=== PATIENT | male | born 1980 | race Caucasian/White ===

== ENCOUNTER 2017-01-16 12:34 | Outpatient (CLI) ==
[2017-01-16 13:03] LABS: BASOPHILS # (AUTO) 0.1 K/uL (0-0.2); BASOPHILS % (AUTO) 0.5 % (0.0-3.0); EOSINOPHILS # (AUTO) 0.1 K/ul (0.0-0.7); EOSINOPHILS % (AUTO) 1.3 % (0.0-7.0); HEMATOCRIT 40.7 % (42.0-52.0); HEMOGLOBIN 14.2 g/dl (14.0-18.0); IMMATURE GRANULOCYTE % (AUTO) 0.5 % (0.0-5.0); LYMPHOCYTES # (AUTO) 2.9 K/uL (0.60-3.4); LYMPHOCYTES % (AUTO) 29.7 (10.0-50.0); MEAN CORPUSCULAR HEMOGLOBIN 29.2 pg (27.0-31.0); MEAN CORPUSCULAR HGB CONC 34.9 (31.8-35.4); MEAN CORPUSCULAR VOLUME 83.7 fl (80.0-94.0); MONOCYTES # (AUTO) 0.7 K/uL (0.4-2.0); MONOCYTES % (AUTO) 7.4 (0-10); NEUTROPHILS # (AUTO) 5.9 K/ul (2.0-6.9); NEUTROPHILS % (AUTO) 60.6; PLATELET COUNT 299 10^3/uL (140-440); RED BLOOD COUNT 4.86 10^6/ul (4.70-6.10); WHITE BLOOD COUNT 9.75 K/ul (4.2-10.2)
[2017-01-16 13:37] LABS: ALBUMIN 4.2 g/dL (3.4-5.0); ALBUMIN/GLOBULIN RATIO 1.31; ANION GAP 12.8; BILIRUBIN,TOTAL 1.63 mg/dL (0.00-1.20); BUN/CREATININE RATIO 13.79; CALCIUM 9.8 mg/dL (8.2-10.2); CHOL/HDL RATIO 4.1 (4.5-6.4); CREATININE 1.16 mg/dL (0.60-1.10); POTASSIUM 3.8 mmol/L (3.5-5.1); TOTAL PROTEIN 7.4 g/dL (6.4-8.2)
== END 2017-01-16 12:35 | disposition home or self-care (01) ==
LOC: LAB 12:34
PROVIDERS: ATTEND Nurse Practitioner Family
DX: Z00.00 Encounter for general adult medical examination without abnormal findings (principal); F41.8 Other specified anxiety disorders
CPT/HCPCS: 36415; 80053; 80061; 84443; 85025

== ENCOUNTER 2017-01-20 06:12 | Outpatient (CLI) | payer OTHER ==
--- NOTE | 2017-01-23 08:00 | STRESSECHO ---
Date of Test: 01/20/17 Reason for Exam: RHEUMATIC TRICUSPID VALVE INSUFFICIENCY, TACHYCARDIA, HTN Ordering Physician: HUMAIRA Current Medications: NONE Resting EKG: Target Heart Rate: 157/185 STAGE MPH/GRADE HEART RATE BPM BLOOD PRESSURE mmhg RHYTHM S-T SEGMENT +/- UP DOWN SYMPTOMS,COMMENTS At Rest 105 128/92 SR X NONE 1 1.7/10% 140 180/100 SR X NONE 2 2.5/12% 150 160/92 SR X NONE 3 3.4/14% 4 4.2/16% 5 5.0/18% Immediately after 160 SR X FATIGUE Durations of Exercise: 8:00 Maximum Heart Rate Reached: 160 Reason for Termination: FATIGUE 3 MIN POST EXERCISE: HR 124 BPM, BP 142/90 MMHG 6 MIN POST EXERCISE: HR 115 INTERPRETATION: 98% OXYGEN SATURATION WITH EXERCISE ON ROOM AIR METS 10.1 1. NO EVIDENCE OF ISCHEMIA BY ST-T WAVE 2. NO CHEST PAIN OR CHEST DISCOMFORT 3. BLOOD PRESSURE RESPONSE: HYPERTENSION AT REST AND WITH EXERCISE 4. NO ARRHYTHMIAS NORMAL LEFT VENTRICLE CONTRACTILITY--RESTING AND POST EXERCISE MTDD
--- NOTE | 2017-01-23 08:04 | ECHOSTRESS ---
Date of Exam: 01/20/17 [facility] Reason for Echo: RHEUMATIC TRICUSPID VALVE INSUFFICIENCY, TACHYCARDIA, STRESS TEST--NO ISCHEMIA M-Mode Normal Adult Results LV Dimensions Normal Adult Results AoV Opening excursions >1.6 LVEDD-base- 3.5-5.8 Ao root dimensions 2.0-3.7 LVESD-base- 3.1-4.6 L. Atrium dimensions 1.9-3.8 Post. Wall thickness 0.8-1.1 IV septum (thickness) 0.7-1.2 Post. Wall excursion 0.72-1.3 Septal motion Systolic motion R. Ventricular cavity 1.5-2.0 LVEF 60% Paradoxical septal wall motion 2-D: NORMAL LEFT VENTRICULAR CONTRACTILITY--RESTING AND POST EXERCISE M-MODE: MV: AV: TV: PV: CHAMBER SIZE: WALL MOTION: NORMAL LEFT VENTRICULAR CONTRACTILITY--RESTING AND POST EXERCISE PERICARDIUM: INTERPRETATION: 1. NORMAL LEFT VENTRICULAR CONTRACTILITY--RESTING AND POST EXERCISE MTDD
== END 2017-01-20 06:13 | disposition home or self-care (01) ==
LOC: CAR 06:12
PROVIDERS: ATTEND Nurse Practitioner Family
DX: I07.1 Rheumatic tricuspid insufficiency (principal); R00.0 Tachycardia, unspecified
CPT/HCPCS: 93005; 93010

== ENCOUNTER 2017-02-23 09:52 | Emergency (ER) ==
[2017-02-23 09:58] VITALS: BP 129/79; TEMP 98.2; BMI 27.1
[2017-02-23 10:28] LABS: BASOPHILS # (AUTO) 0.1 K/uL (0-0.2); BASOPHILS % (AUTO) 1.1 % (0.0-3.0); EOSINOPHILS # (AUTO) 0.7 K/ul (0.0-0.7); EOSINOPHILS % (AUTO) 6.8 % (0.0-7.0); HEMATOCRIT 43.3 % (42.0-52.0); HEMOGLOBIN 15.3 g/dl (14.0-18.0); IMMATURE GRANULOCYTE % (AUTO) 0.6 % (0.0-5.0); LYMPHOCYTES # (AUTO) 1.9 K/uL (0.60-3.4); LYMPHOCYTES % (AUTO) 18.3 (10.0-50.0); MEAN CORPUSCULAR HEMOGLOBIN 29.3 pg (27.0-31.0); MEAN CORPUSCULAR HGB CONC 35.3 (31.8-35.4); MONOCYTES # (AUTO) 0.5 K/uL (0.4-2.0); MONOCYTES % (AUTO) 5.3 (0-10); NEUTROPHILS # (AUTO) 6.9 K/ul (2.0-6.9); NEUTROPHILS % (AUTO) 67.9; PLATELET COUNT 236 10^3/uL (140-440); RED BLOOD COUNT 5.22 10^6/ul (4.70-6.10); WHITE BLOOD COUNT 10.16 K/ul (4.2-10.2)
[2017-02-23 10:50] LABS: ALBUMIN 4.1 g/dL (3.4-5.0); ALBUMIN/GLOBULIN RATIO 1.41; ANION GAP 13.2; BILIRUBIN,TOTAL 0.79 mg/dL (0.00-1.20); BUN/CREATININE RATIO 10.52; CALCIUM 9.7 mg/dL (8.2-10.2); CREATININE 1.14 mg/dL (0.60-1.10); POTASSIUM 4.2 mmol/L (3.5-5.1)
--- NOTE | 2017-02-23 11:33 | ED.PDOC ---
General ED Provider: Dr. JIMMIE ARGUETA Chief Complaint: Non-specific Complaint Stated Complaint: weakness Time Seen by Physician: 10:00 (generalized weakness no pain) Mode of Arrival: Walk-In Information Source: Patient Exam Limitations: No limitations Primary Care Provider[facility] Nursing and Triage Documentation Reviewed and Agree: Yes Miscellaneous Complaint Exam - Febrile Illness/Adult Complaint/Exam Symptoms Are: Still present Timing: Intermittent Episodes Lasting: Minutes Initial Severity: Moderate Current Severity: Moderate Aggravating: Reports: None Alleviating: Reports: None Associated Signs and Symptoms: Denies: Headache, Fluid intake, Short of air, Cough, Sore throat, Nausea, Vomiting, Chills, Diaphoresis, Dysuria, Arthralgia, Stiff neck, Myalgia, Rash, Altered mental status Related History: Reports: Similar episode Pseudomonas Risk Factors: Reports: None Serious Bacterial Infection Risk Factors: Reports: None Current Antibiotic Use: No Related Surgical History: None Review of Systems - Review Of Systems Constitutional: Reports: Malaise, Weakness Eyes: Reports: No symptoms Ears, Nose, Mouth, Throat: Reports: No symptoms Respiratory: Reports: No symptoms Cardiac: Reports: No symptoms GI: Reports: No symptoms : Reports: No symptoms Musculoskeletal: Reports: No symptoms Skin: Reports: No symptoms Neurological: Reports: No symptoms Endocrine: Reports: No symptoms Hematologic/Lymphatic: Reports: No symptoms All Other Systems: Reviewed and Negative Past Medical History - Past Medical History Previously Healthy: Yes Endocrine: Reports: None Cardiovascular: Reports: None Respiratory: Reports: None Hematological: Reports: None Gastrointestinal: Reports: None Genitourinary: Reports: None Neuro/Psych: Reports: None Musculoskeletal: Reports: None Cancer: Reports: None - Surgical History General Surgical History: Reports: None - Family History Family History: Reports: None - Social History Smoking Status: Former smoker Hx Substance Use: No Alcohol Screening: None Physical Exam - Physical Exam Appearance: Well-appearing, No pain distress, Well-nourished Eyes: HAFSA, EOMI, Conjunctiva clear ENT: Ears normal, Nose normal, Oropharynx normal Respiratory: Airway patent, Breath sounds clear, Breath sounds equal, Respirations nonlabored Cardiovascular: RRR, Pulses normal, No rub, No murmur GI/: Soft, Nontender, No masses, Bowel sounds normal, No Organomegaly Musculoskeletal: Normal strength, ROM intact, No edema, No calf tenderness Skin: Warm, Dry, Normal color Neurological: Sensation intact, Motor intact, Reflexes intact, Cranial nerves intact, Alert, Oriented Psychiatric: Affect appropriate, Mood appropriate Critical Care Note - Critical Care Note Total Time (mins): 0 Course - Course Hematology/Chemistry: 02/23/17 10:25 02/23/17 10:25 Orders, Labs, Meds: Lab Review 02/23/17 10:25 WBC 10.16 RBC 5.22 Hgb 15.3 Hct 43.3 MCV 83.0 MCH 29.3 MCHC 35.3 RDW Coeff of Bj 12.4 Plt Count 236 Immature Gran % (Auto) 0.6 Neut % (Auto) 67.9 Lymph % (Auto) 18.3 [place] % (Auto) 5.3 Eos % (Auto) 6.8 Baso % (Auto) 1.1 Immature Gran # (Auto) 0.1 Neut # 6.9 Lymph # 1.9 [place] # 0.5 Eos # 0.7 Baso # 0.1 Sodium 140 Potassium 4.2 Chloride 103 Carbon Dioxide 28 Anion Gap 13.2 BUN 12 Creatinine 1.14 H Estimated GFR (MDRD) 73.00 BUN/Creatinine Ratio 10.52 Glucose 115 H Calcium 9.7 Total Bilirubin 0.79 AST 36 ALT 57 Alkaline Phosphatase 73 Total Protein 7.0 Albumin 4.1 Globulin 2.9 Albumin/Globulin Ratio 1.41 Orders Category Date Time Status CBC W/ AUTO DIFF Stat LAB 02/23/17 10:25 Completed COMPREHENSIVE METABOLIC PANEL Stat LAB 02/23/17 10:25 Completed Vital Signs: Temp Pulse Resp BP Pulse Ox 02/23/17 09:53 98.2 F 105 H 16 129/79 97 Departure - Departure Time of Disposition: 11:33 Disposition: HOME SELF-CARE Discharge Problem: Generalized weakness Instructions: Weakness (ED) Condition: Good Pt referred to PMD for follow-up: No Additional Instructions: Please call your Family Physician as soon as possible to schedule a follow-up appointment. Allergies/Adverse Reactions: Allergies No Known Allergies Allergy (Verified 02/23/17 09:58)
== END 2017-02-23 12:01 | disposition home or self-care (01) ==
LOC: ED 09:52
DX: R53.1 Weakness (principal)
CPT/HCPCS: 36415; 80053; 85025; 99283

== ENCOUNTER 2017-08-24 22:36 | Emergency (ER) ==
[2017-08-24 22:37] VITALS: BMI 27.1
[2017-08-24 22:45] VITALS: BP 143/80; TEMP 98.3
--- NOTE | 2017-08-24 23:04 | ED.PDOC ---
General ED Provider: Dr. GLORIA JASSO Chief Complaint: Chest Wall Injury/Pain Stated Complaint: Patient was cutting wood, lifting some heavy wood, started hurting left side chest, now hurts to breath. Time Seen by Physician: 23:02 Mode of Arrival: Walk-In Information Source: Patient Primary Care Provider: GLORIA JASSO-[facility] Nursing and Triage Documentation Reviewed and Agree: Yes Cardiovascular Complaint Exam - Chest Pain Complaint/Exam Onset: Gradual Symptoms Are: Still present Timing: Constant Initial Severity: Mild Current Severity: Mild Location: Reports: Lower sternal Pain Radiates: Reports: Back Character: Reports: Dull, Aching Aggravating: Reports: Movement, Deep breaths Alleviating: Reports: None Associated Signs and Symptoms: Denies: Diaphoresis, Nausea, Vomiting, Fever, Palpitations, Cough, Hemoptysis, Back pain, Abdominal pain, Dizziness, Short of air, Calf pain, Calf swelling Related History: Reports: Similar episode Related Surgical History: Reports: None History of Healthcare-Acquired Pneumonia: Reports: No AMI/ACS Risk Factors: Reports: None TAD Risk Factors: Reports: None Pulmonary Embolism Risk Factors: Reports: None Recent Stress Test: No Recent Echo/LV Function: No JVD Present: No Diminshed Breath Sounds: No Reproducible Chest Wall Pain: Yes Bilateral Pulses Present: Yes Differential Diagnoses: Chest Wall Pain Review of Systems - Review Of Systems Constitutional: Reports: No symptoms Eyes: Reports: No symptoms Ears, Nose, Mouth, Throat: Reports: No symptoms Respiratory: Reports: No symptoms Cardiac: Reports: Chest pain GI: Reports: No symptoms : Reports: No symptoms Musculoskeletal: Reports: No symptoms Skin: Reports: No symptoms Neurological: Reports: No symptoms Endocrine: Reports: No symptoms Hematologic/Lymphatic: Reports: No symptoms All Other Systems: Reviewed and Negative Past Medical History - Past Medical History Previously Healthy: Yes Endocrine: Reports: None Cardiovascular: Reports: None Respiratory: Reports: None Hematological: Reports: None Gastrointestinal: Reports: None Genitourinary: Reports: None Neuro/Psych: Reports: None Musculoskeletal: Reports: None Cancer: Reports: None - Surgical History General Surgical History: Reports: None - Family History Family History: Reports: None - Social History Smoking Status: Never smoker Hx Substance Use: No Alcohol Screening: None - Immunizations Tetanus Shot up to Date: Yes Physical Exam - Physical Exam Appearance: Ill-appearing Pain Distress: Mild Eyes: HAFSA, EOMI, Conjunctiva clear ENT: Ears normal, Nose normal, Oropharynx normal Respiratory: Airway patent, Breath sounds clear, Breath sounds equal, Respirations nonlabored Cardiovascular: RRR, Pulses normal, No rub, No murmur GI/: Soft, Nontender, No masses, Bowel sounds normal, No Organomegaly Musculoskeletal: Normal strength, ROM intact, No edema, No calf tenderness Skin: Warm, Dry, Normal color Neurological: Sensation intact, Motor intact, Reflexes intact, Cranial nerves intact, Alert, Oriented Psychiatric: Affect appropriate, Mood appropriate Interpretation - Radiology Interpretation Radiology Interpretation By: ED Physician Radiology Results: Negative Exam Interpreted: CXR Critical Care Note - Critical Care Note Total Time (mins): 10 Course - Course Orders, Labs, Meds: Orders Category Date Time Status Ketorolac Tromethamine [Toradol] MEDS 08/24/17 23:01 Discontinued 60 mg IM ONCE STA CHEST, 2 VIEWS PA & LAT Stat RADS 08/24/17 23:01 Taken Medications Discontinued Medications Generic Name Dose Route Start Last Admin Trade Name Starq PRN Reason Stop Dose Admin Ketorolac Tromethamine 60 mg 08/24/17 23:01 08/24/17 23:10 Toradol IM 08/24/17 23:02 60 mg ONCE STA Administration Vital Signs: Temp Pulse Resp BP Pulse Ox 08/24/17 22:38 98.3 F 109 H 20 143/80 H 97 KANNAN Risk Score KANNAN Risk Score: Risk Score Odds of by 30D 0 0.1 (0.1-0.2) 1 0.3 (0.2-0.3) 2 0.4 (0.3-0.5) 3 0.7 (0.6-0.9) 4 1.2 (1.0-1.5) 5 2.2 (1.9-2.6) 6 3.0 (2.5-3.6) 7 4.8 (3.8-6.1) Departure - Departure Time of Disposition: 23:36 Disposition: HOME SELF-CARE Discharge Problem: Chest wall pain Instructions: Chest Wall Pain (ED) Condition: Good Pt referred to PMD for follow-up: Yes Additional Instructions: take medication with food If the pain not better in 3-4 days needs f/u at [facility] Prescriptions: Prednisone 10 mg PO BIDWM #14 tablet Tramadol HCl 50 mg PO BID #14 tablet Allergies/Adverse Reactions: Allergies No Known Allergies Allergy (Verified 08/24/17 22:45) Home Medications: Ambulatory Orders Prednisone 10 mg PO BIDWM #14 tablet 08/24/17 Tramadol HCl 50 mg PO BID #14 tablet 08/24/17 Disposition Discussed With: Patient
[2017-08-24] MEDS: TORADOL IM STA (23:10)
--- NOTE | 2017-08-25 07:55 | DI ---
EXAM: Two-view chest HISTORY: Left-sided pain COMPARISON: None. FINDINGS: The cardiomediastinal silhouette is normal. The lungs are clear bilaterally. No osseous abnormalities are identified. IMPRESSION: No evidence of active pulmonary disease.
== END 2017-08-24 23:39 | disposition home or self-care (01) ==
LOC: ED 22:36
DX: R07.89 Other chest pain (principal)
CPT/HCPCS: 96372; 99282

== ENCOUNTER 2018-05-25 01:08 | Emergency (ER) ==
[2018-05-25 01:22] VITALS: BP 136/76; TEMP 98.6; BMI 28.9
[2018-05-25] MEDS ORDERED: TETRACAINE 0.5% UNIT-DOSE OP STA (01:46)
[2018-05-25] MEDS ORDERED: EYE-STREAM OP STA (01:46)
[2018-05-25] MEDS ORDERED: FLUORETS OP STA (01:46)
--- NOTE | 2018-05-25 01:48 | ED.PDOC ---
General ED Provider: Dr. YANELY RAYMUNDO Chief Complaint: Eye Problem Stated Complaint: feels like there is a foreign body in the right eye. Was using a stone setter metal optical frames two days ago but had no sheild Time Seen by Physician: 01:40 Mode of Arrival: Walk-In Information Source: Patient Primary Care Provider: DIDI PRESLEY Nursing and Triage Documentation Reviewed and Agree: Yes Does patient meet sepsis criteria?: No System Inflammatory Response Syndrome: Not Applicable Sepsis Protocol: For patient's 13 years and over: Temp is 96.8 and below OR 101 and greater Pulse >90 BPM Resp >20/minute Acutely Altered Mental Status Are patient's symptoms suggestive of a new infection, such as: -Pneumonia -Skin, Soft Tissue -Endocarditis -UTI -Bone, Joint Infection -Implantable Device -Acute Abdominal Infection -Wound Infection -Meningitis -Blood Stream Catheter Infection -Unknown EENT Complaint Exam - Eye Complaint/Exam Onset/Duration: 2 days Symptoms Are: Still present Timing: Constant Initial Severity: Moderate Location: Right Character: Reports: Foreign body sensation Aggravating: Reports: Blinking Associated Signs and Symptoms: Reports: Photophobia, Purulent drainage Related History: Reports: Foreign body, Environmental Eye Surgical History: Reports: None Penetrating Injury Risk Factors: Grinding Globe Rupture Risk Factors: None Visual Field: Normal Extraocular Movement: Normal Orbit Findings: Normal Globe Findings: Intact Lid Findings: Normal Fluorescein Uptake: No Fundi: Normal Differential Diagnoses: Conjunctivitis, Foreign Body Review of Systems - Review Of Systems Constitutional: Reports: No symptoms Eyes: Reports: Foreign body sensation, Pain Ears, Nose, Mouth, Throat: Reports: No symptoms Respiratory: Reports: No symptoms Cardiac: Reports: No symptoms GI: Reports: No symptoms : Reports: No symptoms Musculoskeletal: Reports: No symptoms Skin: Reports: No symptoms Neurological: Reports: No symptoms Endocrine: Reports: No symptoms Hematologic/Lymphatic: Reports: No symptoms All Other Systems: Reviewed and Negative Past Medical History - Past Medical History Previously Healthy: Yes Endocrine: Reports: None Cardiovascular: Reports: None Respiratory: Reports: None Hematological: Reports: None Gastrointestinal: Reports: None Genitourinary: Reports: None Neuro/Psych: Reports: None Musculoskeletal: Reports: None Cancer: Reports: None - Surgical History General Surgical History: Reports: None - Family History Family History: Reports: None - Social History Smoking Status: Former smoker Hx Substance Use: No Alcohol Screening: None - Immunizations Tetanus Shot up to Date: Yes Physical Exam - Physical Exam Appearance: Well-appearing, Obese Eyes: HASFA, EOMI, Conjunctiva inflammed Neck: Supple Respiratory: Respirations nonlabored Skin: Warm, Dry Neurological: Alert, Oriented Psychiatric: Anxious Critical Care Note - Critical Care Note Total Time (mins): 0 Course - Course Orders, Labs, Meds: Orders Category Date Time Status Balanced Salt Solution [Eye-Stream] MEDS 05/25/18 01:46 Stat 1 bottle OP ONCE STA Fluorescein Sodium [Fluorets] MEDS 05/25/18 01:46 Stat 1 strip OP ONCE STA Tetracaine HCl/Pf [Tetracaine 0.5% Unit-Dose] MEDS 05/25/18 01:46 Stat 2 drop OP ONCE STA Medications Generic Name Dose Route Start Last Admin Trade Name Freq PRN Reason Stop Dose Admin Eye Irrigation Solution 1 bottle 05/25/18 01:46 Eye-Stream OP 05/25/18 01:47 ONCE STA Fluorescein Sodium 1 strip 05/25/18 01:46 Fluorets OP 05/25/18 01:47 ONCE STA Tetracaine HCl 2 drop 05/25/18 01:46 Tetracaine 0.5% Unit-Dose OP 05/25/18 01:47 ONCE STA Vital Signs: Temp Pulse Resp BP Pulse Ox 05/25/18 01:08 98.6 F 83 18 136/76 96 Departure - Departure Time of Disposition: 01:59 Disposition: HOME SELF-CARE Discharge Problem: Sensation of foreign body in eye Instructions: Eye Foreign Body (ED) Condition: Stable Pt referred to PMD for follow-up: Yes IPMP verified?: No Additional Instructions: Follow up with the eye clinic for reevaluation Use antibiotics eye drops every 4 hours x 10 days. Allergies/Adverse Reactions: Allergies Penicillins Adverse Reaction (Verified 05/25/18 01:22) STATES POSSIBLE PENICILLIN ALLERGY. WAS TOLD BY MOTHER HE WAS ALLERGIC. Home Medications: Ambulatory Orders Ranitidine HCl [Zantac] 150 mg PO BEDTIME PRN 05/25/18 Disposition Discussed With: Patient
[2018-05-25] MEDS ORDERED: GENTAK OPTH SOL OP STA (01:59)
[2018-05-25] MEDS ORDERED: FLUORETS OP ONE (02:05)
[2018-05-25] MEDS ORDERED: TETRACAINE 0.5% UNIT-DOSE OP ONE (02:05)
[2018-05-25] MEDS ORDERED: EYE-STREAM OP ONE (02:05)
== END 2018-05-25 02:29 | disposition home or self-care (01) ==
LOC: ED 01:08
DX: H57.11 Ocular pain, right eye (principal)
CPT/HCPCS: 99282

== ENCOUNTER 2018-07-25 16:07 | Emergency (ER) | payer OTHER ==
[2018-07-25 16:11] VITALS: BP 137/83; TEMP 96.9; BMI 29.5
--- NOTE | 2018-07-25 17:06 | CT ---
EXAM: CT right ankle without contrast HISTORY: Pain post fall. COMPARISON: None TECHNIQUE: Serial axial images of the right ankle were obtained without contrast. These were viewed in multiple planes. FINDINGS: The tibia and fibula are normal without fracture. The structures in the hind foot and the midfoot are normal. There is no lytic or blastic lesion. Soft tissues demonstrate normal musculatur e. There is mild ground-glass surrounding the tendons near the medial malleolus. The soft tissues a re unremarkable. There is mild subcutaneous ground-glass. IMPRESSION: 1. No acute abnormality or displaced fracture of the right ankle. 2. Ground-glass inflammatory stranding involving the flexor tendons near the medial malleolus.
--- NOTE | 2018-07-25 17:30 | ED.PDOC ---
General ED Provider: Dr. JIMMIE ARGUETA Chief Complaint: Ankle Pain/Injury Stated Complaint: right ankle pain Time Seen by Physician: 16:16 (seen with priya pope present at all times has history of old right ankle fracture per pt report) Mode of Arrival: Walk-In Information Source: Patient Exam Limitations: No limitations Primary Care Provider: DIDI PRESLEY Nursing and Triage Documentation Reviewed and Agree: Yes Does patient meet sepsis criteria?: No System Inflammatory Response Syndrome: Not Applicable Sepsis Protocol: For patient's 13 years and over: Temp is 96.8 and below OR 101 and greater Pulse >90 BPM Resp >20/minute Acutely Altered Mental Status Are patient's symptoms suggestive of a new infection, such as: -Pneumonia -Skin, Soft Tissue -Endocarditis -UTI -Bone, Joint Infection -Implantable Device -Acute Abdominal Infection -Wound Infection -Meningitis -Blood Stream Catheter Infection -Unknown Musculoskeletal Complaint Exam - Ankle/Foot Complaint/Exam Location of Injury: Reports: Right, Ankle, Foot Mechanism of Injury: Reports: Trauma, No known trauma Onset/Duration: 1 day Symptoms Are: Reports: Still present Onset of Pain: Reports: Immediate Initial Severity: Moderate Current Severity: Mild Location: Reports: Discrete Character: Reports: Aching, Throbbing, Spasmodic, Stiffness Alleviating: Reports: Rest, Position Aggravating: Reports: Movement Able to Bear Weight: Yes Associated Signs and Symptoms: Denies: Swelling, Redness, Bruising, Fever, Weakness, Numbness, Tingling Related History: Reports: Similar episode Gout Risk Factors: Reports: None Related Surgical History: Reports: None Lower Extremity Findings: Absent: Swelling, Ecchymosis, Abnormal contour, Rotation, Ligamentous instability, Laceration, Erythema, Warmth Achilles Tendon Abnormality: No Tenderness: Present: Lateral malleolus Differential Diagnosis: Closed Fracture Review of Systems - Review Of Systems Constitutional: Reports: No symptoms Eyes: Reports: No symptoms Ears, Nose, Mouth, Throat: Reports: No symptoms Respiratory: Reports: No symptoms Cardiac: Reports: No symptoms GI: Reports: No symptoms : Reports: No symptoms Musculoskeletal: Reports: Joint pain (right ankle) Skin: Reports: No symptoms Neurological: Reports: No symptoms Endocrine: Reports: No symptoms Hematologic/Lymphatic: Reports: No symptoms All Other Systems: Reviewed and Negative Past Medical History - Past Medical History Previously Healthy: Yes Endocrine: Reports: None Cardiovascular: Reports: None Respiratory: Reports: None Hematological: Reports: None Gastrointestinal: Reports: None Genitourinary: Reports: None Neuro/Psych: Reports: None Musculoskeletal: Reports: None Cancer: Reports: None - Surgical History General Surgical History: Reports: None - Family History Family History: Reports: None - Social History Smoking Status: Former smoker Hx Substance Use: No Alcohol Screening: None - Immunizations Tetanus Shot up to Date: No Physical Exam - Physical Exam Appearance: Well-appearing, No pain distress, Well-nourished Eyes: HAFSA, EOMI, Conjunctiva clear ENT: Ears normal, Nose normal, Oropharynx normal Respiratory: Airway patent, Breath sounds clear, Breath sounds equal, Respirations nonlabored Cardiovascular: RRR, Pulses normal, No rub, No murmur GI/: Soft, Nontender, No masses, Bowel sounds normal, No Organomegaly Musculoskeletal: Normal strength, ROM intact, No edema, No calf tenderness Skin: Warm, Dry, Normal color Neurological: Sensation intact, Motor intact, Reflexes intact, Cranial nerves intact, Alert, Oriented Psychiatric: Affect appropriate, Mood appropriate Interpretation - Radiology Interpretation Radiology Interpretation By: Radiologist Radiology Results: No acute changes Critical Care Note - Critical Care Note Total Time (mins): 0 Course - Course Orders, Labs, Meds: Orders Category Date Time Status CT ANKLE RIGHT WO CONTRAST Stat RADS 07/25/18 16:32 Completed Vital Signs: Temp Pulse Resp BP Pulse Ox 07/25/18 16:08 96.9 F L 81 16 137/83 97 Departure - Departure Time of Disposition: 17:30 Disposition: HOME SELF-CARE Discharge Problem: Ankle pain Instructions: Arthralgia (ED) Condition: Good Pt referred to PMD for follow-up: Yes IPMP verified?: No Additional Instructions: Please call your Family Physician as soon as possible to schedule a follow-up appointment.SEE [facility] FOR FURTHER CARE AND MRI OF THE RIGHT ANKLE Allergies/Adverse Reactions: Allergies Penicillins Adverse Reaction (Verified 07/25/18 16:13) STATES POSSIBLE PENICILLIN ALLERGY. WAS TOLD BY MOTHER HE WAS ALLERGIC. Home Medications: Ambulatory Orders Ranitidine HCl [Zantac] 150 mg PO BEDTIME PRN 05/25/18 Disposition Discussed With: Patient
== END 2018-07-25 17:35 | disposition home or self-care (01) ==
LOC: ED 16:07
DX: M25.571 Pain in right ankle and joints of right foot (principal)
CPT/HCPCS: 99282